=== PATIENT | female | born 1950 | race Caucasian/White ===

== ENCOUNTER 2021-06-17 08:59 | Day surgery (SDC) | payer MEDICARE, OTHER ==
[~2021-06-17] VITALS: Ht 152.4 cm; Wt 64.3 kg
[2021-06-17] VITALS (12 sets, daily range): BP systolic 117–177; BP diastolic 53–99
[2021-06-17] MEDS ORDERED: nitroGLYCERIN 0.4mg SUBLingual tab SL PRN ×2 (09:25→14:05)
[2021-06-17] MEDS ORDERED: diphenhydrAMINE 25mg capsule PO PRN (09:25)
[2021-06-17] MEDS ORDERED: NITR0.4T48 SL (09:25)
[2021-06-17] MEDS ORDERED: LISI1TAB51 PO (09:25)
[2021-06-17] MEDS ORDERED: METO-395 PO (09:25)
[2021-06-17] MEDS ORDERED: LORazepam 0.5 MG tablet PO PRN (09:25)
[2021-06-17] MEDS ORDERED: normal saline 1,000 ML IV SCH (09:25)
[2021-06-17 09:51] LABS: BASOPHILS % (AUTO) 0.4 % (0-1); EOSINOPHILS % (AUTO) 0 % (0-6); HEMATOCRIT 33.3 % (35.0-45.0); HEMOGLOBIN 11.7 g/dl (12.0-16.0); LYMPHOCYTES # (AUTO) 1.1 X10'3 (1.1-4.8); LYMPHOCYTES % (AUTO) 15.1 % (21-51); MEAN CORPUSCULAR HEMOGLOBIN 31.1 PG (27.0-31.0); MEAN CORPUSCULAR VOLUME 88.8 FL (78-98); MEAN PLATELET VOLUME 5.5 FL (7.4-10.4); MONOCYTES # (AUTO) 0.2 X10'3 (0-0.9); MONOCYTES % (AUTO) 2.9 % (2-12); NEUTROPHILS # (AUTO) 6.1 X10'3 (1.8-7.7); NEUTROPHILS % (AUTO) 81.6 % (42-75); PLATELET COUNT 483 X10'3 (140-440); RED BLOOD COUNT 3.75 X10'6 (4.20-5.60); RED CELL DISTRIBUTION WIDTH 13.8 % (11.5-14.5); WHITE BLOOD COUNT 7.5 X10'3 (4.5-11.0)
[2021-06-17 10:02] LABS: ALBUMIN 3.8 G/DL (3.4-5.0); ANION GAP 7 (8-16); BLOOD UREA NITROGEN 14 MG/DL (7-18); BUN/CREATININE RATIO 17.1 (6.6-38.0); CALCIUM 9.6 MG/DL (8.5-10.1); CHLORIDE 95 MMOL/L (99-107); CREATININE 0.82 MG/DL (0.40-0.90); GLUCOSE 128 MG/DL (70-104); POTASSIUM 3.4 MMOL/L (3.5-5.1); SODIUM 130 MMOL/L (135-145); TOTAL CARBON DIOXIDE 27.6 MMOL/L (24-32); eGFR 69 ML/MIN
[2021-06-17 10:04] LABS: APTT 24 SECONDS (22-32)
[2021-06-17] MEDS ORDERED: methylPREDNISolone sod succ 125mg/2ml vial IV ONE (10:30)
[2021-06-17] MEDS ORDERED: iohexol 350 MG/ML 50ML vial IV ONE (11:42)
[2021-06-17] MEDS ORDERED: iohexol 350MG/ML 100ml bottle IV ONE (11:42)
[2021-06-17] MEDS ORDERED: LIDOcaine 1% (10mg/ml)w/preservative injection 20ml MDV ONE (11:42)
[2021-06-17] MEDS ORDERED: midazolam 1 mg/ML 2ml injection ONE ×2 (11:42→13:00)
[2021-06-17] MEDS ORDERED: fentaNYL/PF 50MCG/1 ML 2ML syringe ONE (11:42)
[2021-06-17] MEDS ORDERED: ondansetron/PF 4mg/2ml inj IV PRN (14:05)
[2021-06-17] MEDS ORDERED: HYDROcodone/acetaminophen 10/325mg tab PO PRN (14:05)
[2021-06-17] MEDS ORDERED: HYDROcodone/acetaminophen 5mg/325mg tablet PO PRN (14:05)
[2021-06-17] MEDS ORDERED: proCHLORperazine 10 MG/2 ml inj IV PRN (14:05)
[2021-06-17] MEDS ORDERED: OXAZEpam 15mg capsule PO PRN (14:05)
[2021-06-17] MEDS ORDERED: HYDROmorphone inj. 0.5 MG/0.5 ML DISP.SYRIN IV SCH (16:00)
--- NOTE | 2021-06-17 17:47 | NUR ---
Report to Leatha GRAFF. (R) groin site remains stable. No s/s hematoma.
== END 2021-06-17 19:30 | disposition home or self-care (01) ==
LOC: SSTAY O 08:59
PROVIDERS: ATTEND Internal Medicine Cardiovascular Disease
DX: R94.39 Abnormal result of other cardiovascular function study (principal); I25.10 Atherosclerotic heart disease of native coronary artery without angina pectoris; I10 Essential (primary) hypertension; E78.5 Hyperlipidemia, unspecified; J44.9 Chronic obstructive pulmonary disease, unspecified; M47.9 Spondylosis, unspecified; F17.210 Nicotine dependence, cigarettes, uncomplicated; F41.1 Generalized anxiety disorder; G89.4 Chronic pain syndrome; Z88.8 Allergy status to other drugs, medicaments and biological substances; Z79.899 Other long term (current) drug therapy; Z79.01 Long term (current) use of anticoagulants
CPT/HCPCS: 36415; 71046; 80048; 85025; 85610; 85730; 93005; 93458; 99152; 99153; C1760; C1769; J1644; J2250; J2930; J3010; J3490; J7030; Q0163; Q9967; A4620; A6258

== ENCOUNTER 2021-11-23 08:50 | Inpatient (IN) | payer MEDICARE, OTHER ==
[2021-11-18 15:40] LABS: BASOPHILS # (AUTO) 0.1 X10'3 (0-0.2); BASOPHILS % (AUTO) 1.5 % (0-1); EOSINOPHILS # (AUTO) 0.4 X10'3 (0-0.9); EOSINOPHILS % (AUTO) 6.3 % (0-6); LYMPHOCYTES # (AUTO) 1.8 X10'3 (1.1-4.8); LYMPHOCYTES % (AUTO) 25.6 % (21-51); MEAN CORPUSCULAR HEMOGLOBIN 29.9 PG (27.0-31.0); MEAN CORPUSCULAR HGB CONC 33.4 g/dL (33.0-36.5); MEAN CORPUSCULAR VOLUME 89.5 FL (78-98); MEAN PLATELET VOLUME 5.8 FL (7.4-10.4); MONOCYTES # (AUTO) 0.8 X10'3 (0-0.9); MONOCYTES % (AUTO) 11.3 % (2-12); NEUTROPHILS # (AUTO) 3.9 X10'3 (1.8-7.7); NEUTROPHILS % (AUTO) 55.3 % (42-75); PRE OP HEMATOCRIT 38.9 % (35.0-45.0); PRE OP PLATELET COUNT 492 X10'3 (140-440); RED BLOOD COUNT 4.35 X10'6 (4.20-5.60); RED CELL DISTRIBUTION WIDTH 12.8 % (11.5-14.5)
[2021-11-18 15:56] LABS: ALBUMIN 3.9 G/DL (3.4-5.0); ALBUMIN/GLOBULIN RATIO 0.8 (1.1-1.5); ALKALINE PHOSPHATASE 73 IU/L (46-116); BLOOD UREA NITROGEN 15 MG/DL (7-18); BUN/CREATININE RATIO 19.5 (6.6-38.0); CALCIUM 9.6 MG/DL (8.5-10.1); CHLORIDE 96 MMOL/L (99-107); CREATININE 0.77 MG/DL (0.40-0.90); PRE OP ALT 22 U/L (30-65); PRE OP ANION GAP 11 (8-16); PRE OP AST 21 U/L (10-37); PRE OP BILIRUB, TOTAL 0.3 MG/DL (0.0-1.0); PRE OP GLUCOSE 98 MG/DL (70-104); PRE OP POTASSIUM 3.7 MMOL/L (3.4-5.1); PRE OP SODIUM 134 MMOL/L (135-145); TOTAL PROTEIN 8.5 G/DL (6.4-8.2); eGFR 74 ML/MIN
[2021-11-18 16:01] LABS: PRE OP PROTIME 10.4 SECONDS (9.0-12.0)
[~2021-11-23] VITALS: Ht 152.4 cm; Wt 65.6 kg
[2021-11-23] VITALS (11 sets, daily range): BP systolic 124–158; BP diastolic 71–99
[~2021-11-23 08:50] MED LIST: ACET-812 PO; DOCUMENT DATE & TIME OF BETA-BLOCKER PO ONE; DOXY25TA19 PO; IBUP-24 PO; LISI1TAB51 PO; LORA-268 PO; METO-395 PO; ROPIVAcaine 0.5% (5mg/ml) 30ml vial ONE; ceFAZolin inj. 2,000 MG in dextrose 5%-water 100 ML IV ONE; famotidine 20mg tablet PO ONE; tranexamic acid inj. 1,000 MG in 0.7% saline 100 ML PMX IV ONE; vancomycin/NS 1 GM in NS 250 ML IV ONE
[2021-11-23] MEDS ORDERED: morphine 4 MG/ML inj SYRINge IV PRN (09:15)
[2021-11-23] MEDS ORDERED: morphine 2 MG/ML inj. syringe IV PRN (09:15)
[2021-11-23] MEDS ORDERED: proCHLORperazine 10 MG/2 ml inj IV PRN (09:15)
[2021-11-23] MEDS ORDERED: ondansetron/PF 4mg/2ml inj IV PRN ×2 (09:15→13:40)
[2021-11-23] MEDS ORDERED: ringers solution, lacted 1,000 ML IV SCH (09:15)
[2021-11-23] MEDS: ringers solution, lacted 1,000 ML IV SCH ×3 (09:29→16:11)
[2021-11-23] MEDS ORDERED: cloNIDine hcl/PF 100mcg/ml inj ONE (10:14)
[2021-11-23] MEDS ORDERED: ketorolac trometh. 30mg/ml inj. ONE (10:14)
[2021-11-23] MEDS ORDERED: vancomycin 1,000mg inj ONE (10:15)
[2021-11-23] MEDS ORDERED: ROPIVAcaine 0.5% (5mg/ml) 30ml vial ONE (10:15)
[2021-11-23] MEDS ORDERED: MIDAZolam 1 MG/ML 5ML VIAL ONE ×2 (10:43→11:28)
[2021-11-23] MEDS ORDERED: fentaNYL/PF 50MCG/1 ML 2ML syringe ONE (10:43)
[2021-11-23] MEDS ORDERED: propofol inj 20 ML IV ONE (10:57)
--- NOTE | 2021-11-23 13:35 | NUR ---
Received from OR via , accompanied by Anesthesiologist and report given by Anesthesiolgist. PATIENT A&OX4, DENIES PAIN, V/S WNL, NEUROVASCULAR CHECKS INTACT, T10 SENSATIONS, F/C DRAINING CLEAR YELLOW URINE, 18G LUE, JEFF DRESSING TO LEFT KNEE CDI, SCD ON.
[2021-11-23] MEDS ORDERED: HYDROmorphone inj. 0.5 MG/0.5 ML DISP.SYRIN IV PRN (13:40)
[2021-11-23] MEDS ORDERED: bisacodyl 10mg suppository rectal RC PRN (13:40)
[2021-11-23] MEDS ORDERED: naloxone 0.4 mg/ml inj IV PRN (13:40)
[2021-11-23] MEDS ORDERED: magnesium hydroxide 30ml (MOM) UD suspension PO PRN (13:40)
[2021-11-23] MEDS ORDERED: diphenhydrAMINE 25mg capsule PO PRN ×2 (13:40)
[2021-11-23] MEDS ORDERED: acetaminophen 325mg tablet PO PRN (13:40)
[2021-11-23] MEDS: ketorolac tromethamine 15mg/ml inj. IV SCH ×2 (14:00→20:21)
--- NOTE | 2021-11-23 14:45 | NUR ---
PATIENT A&OX4, DENIES PAIN, V/S WNL, NEUROVASCULAR CHECKS INTACT, T10 SENSATIONS, F/C DRAINING CLEAR YELLOW URINE, 18G LUE, JEFF DRESSING TO LEFT KNEE CDI, SCD ON. TAKEN TO 4023A WITH ALL BELONGINGS AND HOOKED UP TO MONITORS IN ROOM AND REPORT GIVEN TO RN WHO HAS TAKEN OVER PATIENT CARE.
[2021-11-23] MEDS: ceFAZolin/D5W- 1GM premix 50 ML IV SCH (17:22)
[2021-11-23] MEDS ORDERED: aspirin 81mg, enteric-coated 1 TAB TABLET.DR PO ONE (17:30)
[2021-11-23] MEDS: HYDROcodone/acetaminophen 10/325mg tab PO PRN ×2 (17:45→21:58)
--- NOTE | 2021-11-23 18:39 | NUR ---
Report given to Deepika GRAFF, all questions answered. Pt resting comfortably in bed. PT was worried about not getting her prescribed ativan that she takes at home. I talked to Dr Costa and he agreed to ordering her 0.5mg ativan bid prn. Pt eating dinner and worked with physical therapy at shift change.
[2021-11-23] MEDS ORDERED: vancomycin/NS 1 GM ADD-VANTAGE 250 ML IV SCH (20:00)
[2021-11-23] MEDS: LORazepam 0.5 MG tablet PO PRN (20:24)
[2021-11-23] MEDS ORDERED: sennosides 8.6mg tablet PO SCH (21:00)
[2021-11-24] MEDS: potassium Cl 20mEq in NS 1,000 ML IV SCH ×2 (01:00→03:00)
[2021-11-24] MEDS: ceFAZolin/D5W- 1GM premix 50 ML IV SCH (01:00)
[2021-11-24] MEDS: ketorolac tromethamine 15mg/ml inj. IV SCH ×2 (01:00→07:25)
[2021-11-24 02:00] VITALS: BP 135/74
[2021-11-24] MEDS: HYDROcodone/acetaminophen 10/325mg tab PO PRN ×2 (02:59→10:03)
[2021-11-24 06:38] VITALS: BP 123/74
--- NOTE | 2021-11-24 07:00 | NUR ---
Patient in room [facility]TH[facility] 4023. I have received report from james redd and had the opportunity to ask questions and assume patient care.
[2021-11-24] MEDS: LORazepam 0.5 MG tablet PO PRN (07:38)
[2021-11-24] MEDS ORDERED: HYDROchlorothiazide 12.5mg capsule PO SCH (08:00)
[2021-11-24] MEDS ORDERED: lisinopril 20mg tablet PO SCH (08:00)
[2021-11-24] MEDS ORDERED: metoprolol succinate 25mg (24-HOUR) SR. Tablet PO SCH (08:00)
[2021-11-24 10:00] VITALS: BP 145/75
--- NOTE | 2021-11-24 11:47 | NUR ---
UNABLE TO REACH HANSEL WARREN ABOUT PT DISCHARGE BEING PUT IN. WILL TRY AGAIN LATER
--- NOTE | 2021-11-24 12:03 | NUR ---
Joint surgery consult: Pt s/p L knee surgery this admit. Pt seen by MANJIT for written/verbal high protein diet ed w/ RD contact information provided. MANJIT encouraged pt to contact dietitian's office if further questions/concerns. Addendum: 11/24/21 at [address] Amended: Links added.
[2021-11-24] MEDS ORDERED: ASPI81TA52 PO (12:10)
--- NOTE | 2021-11-24 13:05 | NUR ---
PT IS STABLE FOR DISCHARGE, IV CANNULA IS INTACT, ALL DISCHARGE INFO WAS GONE OVER, FOLLOW UP WITH VEEROG TUESDAY WAS DISCUSSED WELL [employer] DRESSING, ALL BELONGINGS ARE SENT WITH PT, PT WAS WHEELED DOWN IN A WHEELCHAIR BY TECH.PT LEFT WITH IN PRIVATE VEHICLE.
== END 2021-11-24 13:05 | disposition home or self-care (01) | DRG 470 ==
LOC: PAS 08:50 → ORTHO 4S 13:42
PROVIDERS: ADMIT Orthopaedic Surgery; ATTEND Orthopaedic Surgery
PROC: 3E0T3BZ Introduction of Anesthetic Agent into Peripheral Nerves and Plexi, Percutaneous Approach (ICD-10-PCS; 2021-11-23)
PROC: 3E0T33Z Introduction of Anti-inflammatory into Peripheral Nerves and Plexi, Percutaneous Approach (ICD-10-PCS; 2021-11-23)
PROC: 0SRD0J9 Replacement of Left Knee Joint with Synthetic Substitute, Cemented, Open Approach (ICD-10-PCS; principal; 2021-11-23 10:35)
DX: M17.12 Unilateral primary osteoarthritis, left knee (principal); Z96.651 Presence of right artificial knee joint; I25.10 Atherosclerotic heart disease of native coronary artery without angina pectoris; F41.9 Anxiety disorder, unspecified; I10 Essential (primary) hypertension; Z79.899 Other long term (current) drug therapy
CPT/HCPCS: 36415; 80053; 82948; 85025; 85610; 85730; 86885; 86900; 86901; 86920; 87081; 97116; 97161; 97530; A6455; A7000; A9272; C1713; C1758; C1776; G0378; J0690; J0735; J1885; J2250; J2704; J2795; J3010; J3370; J3480; J3490; J7060; J7120